=== PATIENT | female | born 1980 | race Caucasian/White ===

== ENCOUNTER 2016-11-29 14:10 | Emergency (ER) | payer BC, MEDICAID ==
[2016-11-29 16:12] VITALS: BP 127/74
== END 2016-11-29 16:12 | disposition home or self-care (01) ==
LOC: ED 14:10
DX: R21 Rash and other nonspecific skin eruption (principal); R19.7 Diarrhea, unspecified; E66.9 Obesity, unspecified
CPT/HCPCS: J0171; J1200; J2930

== ENCOUNTER 2018-04-24 16:47 | Emergency (ER) | payer BC ==
[~2018-04-24] VITALS: Ht 154.9 cm; Wt 104.3 kg
[2018-04-24 16:51] VITALS: Ht 154.9 cm; Wt 104.3 kg
[2018-04-24 19:19] LABS: BASOPHIL % 0.3 % (0-2); PLATELET COUNT 274 x10^3mcL (130-400); RED CELL DISTRIBUTION WIDTH 12.6 % (11.5-14.5)
[2018-04-24 19:32] LABS: CALCIUM 8.9 mg/dL (8.5-10.1); CARBON DIOXIDE 25.8 mmol/L (21-32); CHLORIDE SERUM 100 mmol/L (98-107); CREATININE SERUM 0.8 mg/dL (0.6-1.0); GFR1 > 60 mL/min; GLUCOSE SERUM 120 mg/dL (74-106); SODIUM SERUM 137 mmol/L (136-145)
[2018-04-24 19:36] LABS: ALKALINE PHOSPHATASE 84 U/L (46-116); ALT/SGPT 40 U/L (14-59); AST/SGOT 22 U/L (15-37); BILIRUBIN TOTAL 0.55 mg/dL (0.20-1.00); LIPASE 349 IU/L (73-393)
[2018-04-24 19:37] LABS: TOTAL PROTEIN, SERUM 8.6 g/dL (6.4-8.2)
[2018-04-24 20:10] VITALS: BP 122/74
== END 2018-04-24 20:10 | disposition home or self-care (01) ==
LOC: ED 16:47
PROVIDERS: Emergency Medicine
DX: K80.20 Calculus of gallbladder without cholecystitis without obstruction (principal); Z90.89 Acquired absence of other organs
CPT/HCPCS: 36415

== ENCOUNTER 2018-09-21 04:27 | Inpatient (IN) | payer BC ==
[~2018-09-21] VITALS: Ht 157.5 cm; Wt 106.0 kg
[2018-09-21 04:35] VITALS: Ht 157.5 cm; Wt 106.0 kg
--- NOTE | 2018-09-21 04:35 | NUR ---
PT PRESENTS TO ER TODAY WITH C/O OF GENERALIZED ABD PAIN THAT STARTED APPROX 2 HRS AGO. PT STATES THAT PAIN IS BURING AND RATES IT 10/10. SISTER AT BEDSIDE STATES THAT PT HAS VOMITED APPROX 5 TIMES IN THE PAST 2 HRS. PT DENIES ANY OTHER SYMPTOMS. PT BROUGHT TO ROOM 2B VIA WHEELCHAIR FROM THE LOBBY. PT IN DISTRESS AT THIS TIME ROLLING AROUND ON BED MOANING AND YELLING "IT HURTS". PT HAD ONE EPISODE OF VOMITING ON THE FLOOR APPROX 50MLS, NO BLOOD NOTED. PT IS A/O X4. SISTER AT BEDSIDE. MD CANNON AT BEDSIDE FOR MSE.
--- NOTE | 2018-09-21 04:45 | NUR ---
PT MEDICATED PER EMAR. PT DENIES ANY CHANCE OF , UNABLE TO OBTAIN URINE SAMPLE FROM PT AT THIS TIME.
--- NOTE | 2018-09-21 05:07 | NUR ---
PT OFF THE FLOOR FOR CT SCAN.
--- NOTE | 2018-09-21 05:18 | NUR ---
PT BACK FROM CT, US SOUND AT BEDSIDE.
[2018-09-21 05:29] LABS: CARBON DIOXIDE 21.8 mmol/L (21-32); CHLORIDE SERUM 103 mmol/L (98-107); CREATININE SERUM 0.8 mg/dL (0.6-1.0); GFR1 > 60 mL/min; GLUCOSE SERUM 197 mg/dL (74-106); POTASSIUM SERUM 3.6 mmol/L (3.5-5.1); SODIUM SERUM 137 mmol/L (136-145)
[2018-09-21 05:34] LABS: ALBUMIN 3.8 g/dL (3.4-5.0); ALKALINE PHOSPHATASE 170 U/L (46-116); ALT/SGPT 308 U/L (14-59); AST/SGOT 321 U/L (15-37); BILIRUBIN TOTAL 1.53 mg/dL (0.20-1.00)
[2018-09-21 06:07] LABS: LIPASE 32844 IU/L (73-393)
[2018-09-21 06:21] LABS: BASOPHIL % 0.3 % (0-2); PLATELET COUNT 307 x10^3mcL (130-400); RED CELL DISTRIBUTION WIDTH 13.1 % (11.5-14.5)
--- NOTE | 2018-09-21 06:46 | NUR ---
RECEIVED PT FROM ED. PT AOX4. DENIES CEVALLOS/DIZZINESS. MED SURG PT. DENIES CP/PRESSURE. LUNG SOUNDS CLEAR, ON RA. DENIES SOB/DIFFICULTY BREATHING. C/O 01/24 ABD PAIN. IV TO RAC, INTACT AND PATENT. BED IN LOWEST POSITION. CALL LIGHT WTIHIN REACH. WILL ENDORSE CARE TO ONCOMING SHIFT NURSE.
[2018-09-21 06:48] VITALS: BP 106/57
[2018-09-21 07:06] LABS: T3 TOTAL 1.42 ng/mL
[2018-09-21 07:12] LABS: MAGNESIUM 1.9 mg/dL (1.8-2.4); PHOSPHOROUS 3.7 mg/dL (2.5-4.9)
[2018-09-21 07:25] LABS: FREE T4 1.16 ng/dL (0.76-1.46); FREE THYROXINE INDEX 3.8 ug/dL (1.4-4.5); T4(THYROXINE) 11.3 ug/dL (4.7-13.3)
--- NOTE | 2018-09-21 07:48 | NUR ---
CANCELLATION REQUESTED FOR ECHOCARDIOGRAM
--- NOTE | 2018-09-21 07:50 | NUR ---
PATIENT RESTING IN BED, PATIENT C/O SHARP PAIN TO ABDOMEN 11/24. PATIENT DENIES NAUSEA, VOMITTING AT THIS TIME. PATIENT STATES LAST BM WAS YESTERDAY 09/20/18, FORMED STOOL. NS IV INFUSING TO RAC AT 150 ML/HR, IV SITE CDI AND PATENT, NO S/S OF INFILTRATION. CALL LIGHT WITHIN REACH, BED IN LOW POSITION, WILL CONTINUE TO MONITOR PATIENT.
--- NOTE | 2018-09-21 08:37 | NUR ---
PATIENT C/O OF ABDOMINAL PAIN 11/24, MEDICATED PATIENT WITH MORPHINE (PER PROTOCOL), PATIENT STATES PAIN INCREASES WITH MOVEMENT AND DEEP BREATHING. EDUCATED PATIENT IN RELAXATION TECHNIQUES AND ON PAIN MANAGEMENT. WILL CONTINUE TO MONITOR PATIENT FOR CHANGES. CALL LIGHT WITHIN REACH, BED IN LOW POSITION FOR SAFETY PRECAUTION.
[2018-09-21 08:38] LABS: CHOLESTEROL/HDL RATIO 6.6
[2018-09-21 10:07] VITALS: BP 104/51
--- NOTE | 2018-09-21 10:16 | NUR ---
PATIENT C/O CONTINOUS ABDOMNIAL PAIN, MEDICATED PATIENT WITH NORCO (PER PROTOCOL) SEE EMAR. NOTIFIED DR. ALBRIGHT OF PATIENT CONTINOUS PAIN. DR ALBRIGHT WILL REVIEW PAIN MEDICATIONS. WILL CONTINUE TO MONITOR, CALL LIGHT WITHIN REACH, BED IN LOW POSITION.
[2018-09-21 10:51] VITALS: BP 104/51
--- NOTE | 2018-09-21 14:02 | NUR ---
REPORT GIVEN TO ICU NURSE PIPPA. PATIENT WAS TAKEN DOWN VIA WHEELCHAIR. RN PIPPA AWARE ANTIBIOTICS WERE STILL INFUSING AND KLOR STILL NEEDS TO BE GIVEN.
[2018-09-21 14:05] VITALS: BP 127/75
--- NOTE | 2018-09-21 14:05 | NUR ---
RECEIVED PATIENT FROM [facility]. PATIENT A/A/OX4; CLEAR SPEECH. V/S = [id number] - 127/75 (92); O2 SAT 93% ON RA. DENIED PAIN NOW. IV TO RAC PATENT. NPO. AMBULATORY. CONTINUE MONITOR.
[2018-09-21 18:00] VITALS: BP 121/74
--- NOTE | 2018-09-21 18:00 | NUR ---
C/O ABD PAIN INCREASED TO 6/10; DILAUDID 2MG IVP GIVEN. CONTINUE MONITOR.
--- NOTE | 2018-09-21 18:30 | NUR ---
STATED ABD PAIN WENT DOWN TO 04/26.
--- NOTE | 2018-09-21 19:07 | NUR ---
RECIEVED REPORT FROM PIPPA ZURITA. WILL RESUME CARE.
[2018-09-21 19:20] VITALS: BP 120/68
--- NOTE | 2018-09-21 20:05 | NUR ---
DR. MINOR AT BEDSIDE ASSESSING PT. UPDATES PROVIDED.
--- NOTE | 2018-09-21 21:00 | NUR ---
PT C/O NAUSEA AND 7/10 PAIN. GIVEN ZOFRAN 4MG IVP AND DILAUDID 2MG IVP. WILL REASSESS FOR RELIEF.
[2018-09-22 01:55] LABS: UA SPECIFIC GRAVITY >=1.030 (1.005-1.035); microscopic required? YES; urine erythrocyte TRACE (NEGATIVE)
[2018-09-22 02:20] LABS: AMPHETAMINE QUAL UR NONE DETECTED (See below)
[2018-09-22 03:08] VITALS: BP 106/60
--- NOTE | 2018-09-22 03:08 | NUR ---
ASSESSED PT AT BEDSIDE. PT STATES NO PAIN OR NAUSEA AT THIS TIME. PT REMAINS ON 2L NC. NO SOB OR RESPIRATORY DISTRESS NOTED. BREATHING E/U. WILL CONTINUE TO MONITOR.
--- NOTE | 2018-09-22 04:25 | NUR ---
SHOP REPAIRER AT BEDSIDE FOR BLOOD DRAW.
[2018-09-22 05:27] LABS: BASOPHIL % 0 % (0-2); PLATELET COUNT 254 x10^3mcL (130-400); RED CELL DISTRIBUTION WIDTH 13.7 % (11.5-14.5)
[2018-09-22 05:34] LABS: CALCIUM 8.1 mg/dL (8.5-10.1); CARBON DIOXIDE 25.6 mmol/L (21-32); CHLORIDE SERUM 105 mmol/L (98-107); CREATININE SERUM 0.7 mg/dL (0.6-1.0); GFR1 > 60 mL/min; GLUCOSE SERUM 115 mg/dL (74-106); SODIUM SERUM 140 mmol/L (136-145)
[2018-09-22 06:06] LABS: LIPASE 5277 IU/L (73-393)
--- NOTE | 2018-09-22 06:09 | NUR ---
THROUGHOUT SHIFT PT RECEIVED DILAUDID 2MG IVP X 3 DURING SHIFT FOR ABDOMINAL PAIN AND ZOFRAN 4MG IVP FOR NAUSEA X3 DURING SHIFT. NC REMAINS AT 2L WITH NO S/SX OF SOB OR RESPIRATORY DISTRESS NOTED. NO EPISODES OF EMESIS. PT STILL NPO AT THIS TIME. VOIDED X 2. NO BM. GOWN AND LINENS CHANGED. ALL NEEDS MET AND ANTICIPATED. BED IN LOW POSITION. CALL LIGHT WITHIN REACH. WILL ENDORSE TO ONCOMING RN.
[2018-09-22 06:12] LABS: ALBUMIN 2.9 g/dL (3.4-5.0)
[2018-09-22 06:22] LABS: BILIRUBIN DIRECT 0.33 mg/dL (0.0-0.2); BILIRUBIN TOTAL 1.37 mg/dL (0.20-1.00); TOTAL PROTEIN, SERUM 6.7 g/dL (6.4-8.2)
--- NOTE | 2018-09-22 07:05 | NUR ---
GAVE REPORT TO CHETAN ZURITA. ALL QUESTIONS AND CONCERNS ADDRESSED.
--- NOTE | 2018-09-22 07:38 | NUR ---
RECEIVED PT'S REPORT FROM LEAVING NURSE. PT IS AA/O X4, NO COMPLAIN OF PAIN. PT IS NPO. PT BREATHING ON O2 2L VIA NC, EVEN, UNLABORED. PT REPORTED INCREASING ABD PAIN WHEN DEEP BREATHING. IV SITE RAC PATENT, INTACT, IVF LR INFUSING AT 150ML/HR. WILL CONTINUE TO MONITOR.
[2018-09-22 08:11] VITALS: BP 115/68
--- NOTE | 2018-09-22 09:24 | NUR ---
DR. COLIN ASSESSED PT AT BEDSIDE, ORDERED CONTINUING NPO AND IV FLUID AT 150ML/HR, AND CONFIRMED PT IS OK TO TRANSFER TO [facility] UNIT.
--- NOTE | 2018-09-22 10:10 | NUR ---
PT IS GOING TO TRANSFER TO [facility] UNIT. PT'S REPORT GIVEN TO RECEIVING NURSE HOME. CONCERN AND QUESTION ADDRESSED. PT NO COMPLAIN OF PAIN AT THIS TIME. NO DISTRESSED NOTED. WILL TRANSFER PT VIA WHEELCHAIR.
[2018-09-22 10:45] VITALS: BP 114/72
[2018-09-22 12:58] VITALS: BP 110/67
--- NOTE | 2018-09-22 13:25 | NUR ---
AT 1045 - RECEIVED PATIENT FROM ICU NURSE VIA WHEELCHAIR. SETTLED IN ROOM, ORIENTED TO SURROUNDINGS AND PLACED ON CARDIAC MONITORING TELE # 1. AWAKE, ALERT AND ORIENTED. C/O ABDOMINAL PAIN 5/10. IV INFUSING LR AT 150 ML/HR. NPO. VS WNL. AT 1113 - MEDICATED WITH DILAUDID PER EMAR. AT 1125 - SEEN BY DR SANTAMARIA. NEW ORDERS RECEIVED. PATIENT MAY COMMENCE CLEAR LIQUID DIET. AT 1230 - HAS HAD GOOD PAIN RELEIF WITH DILAUDID GIVEN EARLIER. IV INFUSION REDUCED TO 100 ML/HR PER NEW ORDERS. AT 1300 - TOLERATING CLEAR LIQUIDS PO. FAMILY AT BEDSIDE.
--- NOTE | 2018-09-22 15:20 | NUR ---
RESTING QUIETLY. NO NAUSEA, VOMITING OR C/O ABDOMINAL PAIN.
--- NOTE | 2018-09-22 18:35 | NUR ---
NO FURTHER C/O NAUSEA. NO VOMITING. PAIN APPEARS UNDER CONTROL AT THIS TIME. PATIENT TAKING SMALL AMOUNTS OF CLEAR LIQUIDS. IV INFUSING LR AT 100 ML/HR. MONITOR SHOWING SINUS TACH; RATE 106. AFEBRILE. WILL ENDORSE CARE TO NIGHT NURSE.
[2018-09-22 18:51] VITALS: BP 109/68
--- NOTE | 2018-09-22 19:10 | NUR ---
RECEIVED PT IN BED RESTING. NO ACUTE RESPIRATORY DISTRESS NOTED. C/O ABDOMINAL PAIN 12/25. WILL MEDICATE ORDERED. IV SITE PATENT AND INTACT. BE DIN LOWEST POSITION,CALL LIGHT WITHIN REACH. WILL CONTINUE TO MONITOR.
--- NOTE | 2018-09-22 20:27 | NUR ---
PT C/O ABDOMINAL PAIN 12/25. MEDICATED DILAUDID 2MG IV ORDERED. WILL CONTINUE TO MONITOR.
[2018-09-22 20:32] VITALS: BP 118/68
--- NOTE | 2018-09-23 00:14 | NUR ---
PT C/O ABDOMINAL PAIN 11/24. MEDICATED NORCO 10/325MG PO ORDERED. WILL CONTINUE TO MONITOR.
[2018-09-23 05:13] VITALS: BP 120/76
--- NOTE | 2018-09-23 05:18 | NUR ---
PT AWAKE,ALERT.NO DISTRESS NOTED.C/O ABDOMINAL PAIN 10/24. WILL MEDICATE ORDERED. BED IN LOWEST POSITION,CALL LIGHT WITHIN REACH. WILL CONTINUE TO MONITOR.
[2018-09-23 07:17] LABS: PLATELET COUNT 219 x10^3mcL (130-400); RED CELL DISTRIBUTION WIDTH 14.3 % (11.5-14.5)
--- NOTE | 2018-09-23 07:19 | NUR ---
CARE ENDORSED TO DAY NURSE MECHELLE.
[2018-09-23 07:26] LABS: CALCIUM 8.1 mg/dL (8.5-10.1); CARBON DIOXIDE 28.5 mmol/L (21-32); CHLORIDE SERUM 104 mmol/L (98-107); CREATININE SERUM 0.7 mg/dL (0.6-1.0); GFR1 > 60 mL/min; GLUCOSE SERUM 117 mg/dL (74-106); POTASSIUM SERUM 3.5 mmol/L (3.5-5.1); SODIUM SERUM 139 mmol/L (136-145)
--- NOTE | 2018-09-23 08:21 | NUR ---
AT 0730 - RECEIVED PATIENT FROM NIGHT NURSE. AWAKE, ALERT AND ORIENTED. ASSISSTED TO BATHROOM AND BACK TO BED. IV INFUSING LR AT 100 ML/HR. MONITOR SHOWING SINUS TACH; RATE 101. ABDOMEN DISTENDED AND FIRM; HYPOACTIVE BOWEL SOUNDS. NOT PASSING GAS. NO BM SINCE ADMISSION. ENCOURAGED AMBULATION. ABDOMINAL PAIN 3/10 AT THIS TIME. AT 0800 - PATIENT NOW SITTING ON SIDE OF BED FOR BREAKFAST.
[2018-09-23 08:28] LABS: LIPASE 2200 IU/L (73-393)
--- NOTE | 2018-09-23 09:03 | NUR ---
C/O ABDOMINAL PAIN 10/24. MEDICATED WITH IV DILAUDID PER EMAR. SEEN BY DR COLIN. NEW ORDERS RECEIVED.
[2018-09-23 09:11] VITALS: BP 118/52
[2018-09-23 09:20] LABS: BILIRUBIN DIRECT 0.2 mg/dL (0.0-0.2); BILIRUBIN TOTAL 0.9 mg/dL (0.20-1.00); TOTAL PROTEIN, SERUM 6.3 g/dL (6.4-8.2)
[2018-09-23 09:21] LABS: ALBUMIN 2.6 g/dL (3.4-5.0)
[2018-09-23 09:58] LABS: BAND NEUTROPHIL 5 % (0-10); BASOPHIL 0 % (0-2); METAMYELOCTE 1 % (0-2); MONOCYTE 4 % (0-7); SEGMENTED NEUTROPHILS 80 % (37-75); rbc morphology (normal/abnorm) NORMAL (NORMAL)
[2018-09-23 13:26] VITALS: BP 107/57
--- NOTE | 2018-09-23 14:29 | NUR ---
PATIENT HAS BEEN AMBULATING IN HALLWAY. ABDOMEN DISTENDED AND FIRM WITH WITH C/O MODERATE TO SEVERE ABDOMINAL PAIN. NOW GIVEN MIRALAX PER EMAR.
--- NOTE | 2018-09-23 16:35 | NUR ---
TEMP 101.7. PATIENT STIL C/O ABDOMINAL PAIN DESPITE IV DILAUDID. CALL PLACED FOR STOKER ERECTOR COOPER TO NOTIFY AND POSSIBLE ORDER FOR TORADOL AND SIMETHICONE.
[2018-09-23 17:17] VITALS: BP 128/77
--- NOTE | 2018-09-23 17:18 | NUR ---
AT 1710 - GIVEN TYLANOL PER EMAR. NOT YET ABLE TO SPEAK WITH COTTAGE MASTER.
--- NOTE | 2018-09-23 18:43 | NUR ---
AT 1755 - SPOKE WITH REAL TIME OPERATOR KENNETH PER PHONE. RECEIVED ORDER FOR SIMETHACONE (CHEWABLE) 40 MG PO Q 6 PRN FOR RELEIF OF GAS. CONTINUE TO GIVE DILAUDID FOR PAIN, PATIENT CANNOT HAVE TORADOL. AT 1815 - MEDICATED WITH DILAUDID PER EMAR. CONSENT FOR SURGERY WAS SIGNED BY PATIENT EARLIER. HAS HAD A VERY SMALL BM OF HARD STOOL. CONTIUES TO HAVE ABDOMINAL DISTENTION. NOT PASSING GAS. IV INFUSING LR AT 100 ML/HR. TAKING SMALL AMOUNTS OF CLEAR LIQUIDS PO. WILL NEED TO BE NPO AFTER MIDNIGHT, FOR SURGERY. WILL ENDORSE CARE TO NIGHT NURSE.
--- NOTE | 2018-09-23 19:02 | NUR ---
GIVEN SIMETHACONE PER EMAR
--- NOTE | 2018-09-23 19:45 | NUR ---
RECEICVED AWAKE IN BED WATCHUBG TV, SKIN WARM AND DRY TO TOUCH , RESPIRATION EVEN AND UNLABORED. PAIN LEVEL 2/10, TOLERABLE AT THIS HERMILO. WAS GIVEN DILAUDID 2MG IVP AT 1945 BY AM NURDE/ ON ROOM AIR SATURATING AT 96%, RESPIRATION EVENAND UBKBORED. PLACED CALL LIGHT WITHIN REACH, INSTRUCTED TO CALL FOR ANY ASSISTANCE NEEDED AND VERBALIZED UNDERSTANDING.
[2018-09-23 21:26] VITALS: BP 124/71
--- NOTE | 2018-09-24 01:18 | NUR ---
PT WAS GIVEN DILAUDID 2MG IVP FOR SEVERE BACK PAIN 11/24 ON 2114 AND 25, WITH GOOD RELIEF. AMBULATED TO BATRHROOM FOR PERSONAL NEEDS , HAD BM X 1 BROWNISH STOOL WELL FORMED . KEPT CLEAN AND DRY.
--- NOTE | 2018-09-24 02:04 | NUR ---
EYES CLOSED, NO FACIAL GRIMACING NOTED. RESPIRATION EVEN AND UNLABORED. NO S.S OF PAIN/DISCOMFORT. ENDORSED TO PARMINDER PAGE FOR CONTINUOTY OF CARE.
--- NOTE | 2018-09-24 02:05 | NUR ---
RECEIVED REPORT FROM PARMINDER MORALES. PT RESTING WITH EYES CLOSED. NO DISTRESS NOTED. CALL LIGHT WITHIN REACH. WILL CONTINUE TO MONITOR.
--- NOTE | 2018-09-24 03:34 | NUR ---
PT C/O SHARP PAIN TO ABD AND BACK /. MEDICATED WITH DILAUDID.
--- NOTE | 2018-09-24 03:45 | NUR ---
ZOFRAN GIVEN FOR NAUSEA.
[2018-09-24 06:03] VITALS: BP 141/90
--- NOTE | 2018-09-24 06:37 | NUR ---
DILAUDID GIVEN FOR ABD AND BACK SHARP PAIN /.
[2018-09-24 06:45] LABS: PLATELET COUNT 231 x10^3mcL (130-400); RED CELL DISTRIBUTION WIDTH 13.4 % (11.5-14.5)
--- NOTE | 2018-09-24 06:55 | NUR ---
PT RESTED AT INTERVALS THROUGHOUT SHIFT. NO SOB ON ROOM AIR. BREATHING EVEN AND UNLABORED. ON AND OFF C/O ABD AND BACK PAIN. MEDICATED PER ORDER. PT NPO SINCE MIDNIGHT FOR PROCEDURE TODAY. CONSENT SIGNED. CHECKLIST STARTED. SAFETY MEASURES MAINTAINED. CALL LIGHT WITHIN REACH. WILL ENDORSE CONTINUITY OF CARE TO DAY SHIFT RN.
--- NOTE | 2018-09-24 07:00 | NUR ---
PT AWAKE AND ALERT. PT HAD A DILAUDID IV AT 0630. PT STATED PAIN LEVEL 2/10 AT THIS TIME AND PRIOR TO MED WAS 8/10. PT NPO FOR SURG AT 110AM AND PT AWARE. PT AWARE OF USING INCENTIVE SPIROMETER POST OP AND DEEP BREATHING EXERCISES. BREATH SOUNDS CLEAR JEROME, NO RESP DISTRESS NOTED. 02 SAT 98% ON RA. TELE BOX #1 ON PATIENT AND VERIFIED WITH ADJUNCT ART HISTORY INSTRUCTOR AND SHOWS SR WITH HR 87/MIN. ABD SOFT WITH AUDIBLE BSX4 QUADS. PT STATED LAST BM WAS YESTERDAY, FORMED STOOLS. VOIDING WITHOUT PROBLEM. FREDERICK WELL. IV SITE ON RT FA, NO S/S INFILTRATION.IV OF LR INFUSING WELL AT 100CC/HR. CALL LIGHT WITHIN REACHED. BED IN LOW POSITION AND LOCKED.
[2018-09-24 07:20] LABS: CALCIUM 8.9 mg/dL (8.5-10.1); CHLORIDE SERUM 100 mmol/L (98-107); CREATININE SERUM 0.7 mg/dL (0.6-1.0); GFR1 > 60 mL/min; GLUCOSE SERUM 121 mg/dL (74-106); POTASSIUM SERUM 3.5 mmol/L (3.5-5.1); SODIUM SERUM 137 mmol/L (136-145)
[2018-09-24 09:06] VITALS: BP 121/71
--- NOTE | 2018-09-24 09:50 | NUR ---
PT COMPLAINING OF ABD PAIN 12/25. VS TAKEN 110/70, HR 83 SR, 02 SAT 98% AND RR 22. GIVEN DILAUDID 2MG IVP SLOW ORDERED. IV SITE ON RT FA, NO S/S INFILTRATION. CALL LIGHT WITHIN REACHED.
--- NOTE | 2018-09-24 10:00 | NUR ---
PT HAS KRIDER DUE BUT NOT AVAIL YET FROM PHARMACY. OR HERE AND TOOK PT TO OR [facility]IA [facility]. OR NURSE ANGELIA MADE AWARE OF KRIDER ORDER. K LEVEL 3.5 THIS AM.
--- NOTE | 2018-09-24 13:00 | NUR ---
REPORT RECEIVED VIA PHONE FROM OR NURSE JORDAN AND UNABLE TO DO LAP FABIOLA. ONLY DIAGNOSTIC LAP FABIOLA. ENDORSED TO YENY ZURITA. PT WILL BE COMING UP SOON.
--- NOTE | 2018-09-24 13:17 | NUR ---
RECEIVED PT FROM OR VIA [facility]. S/P ABORTED LAP FABIOLA, BANDAID X1 NOTED TO MID ABD. NO REPORTS OF PAIN AND ABD DISCOMFORT. VSS. BP 132/83, MAP 103, TEMP 98.6, O2 SAT 93% 2L O2, HR 107. INSTRUCTED PT ON THE USE OF CALL LIGHT FOR ASSISTANCE. WILL CONTINUE TO MONITOR
[2018-09-24 13:36] LABS: BAND NEUTROPHIL 11 % (0-10); BASOPHIL 0 % (0-2); MONOCYTE 2 % (0-7); SEGMENTED NEUTROPHILS 77 % (37-75)
[2018-09-24 13:37] LABS: rbc morphology (normal/abnorm) ABNORMAL (NORMAL)
[2018-09-24 18:02] VITALS: BP 130/76
--- NOTE | 2018-09-24 19:27 | NUR ---
RECEIVED PT FROM DAY SHIFT RN. PT AA0X4 DENIES HEADACHE OR DIZZINESS. TELE #1 ST HR 109 PER MONITOR. PT DENIES CHEST PAIN OR PRESSURE. LUNG SOUNDS CTA ON NC 2L/MIN, NO SOB NOTED. ABD INCISION COVERED WITH DRESSING, NO SIGNS OF ACTIVE BLEEDING NOTED. IV RH PATENT, INFUSING WELL WITH NO SIGNS OF INFILTRATION. GENERALIZED WEAKNESS. NO SIGNS OF ACUTE DISTRESS NOTED. CALL BUTTON WITHIN REACH. WILL CONTINUE TO MONITOR.
[2018-09-24 20:02] VITALS: BP 137/80
--- NOTE | 2018-09-24 20:30 | NUR ---
ENEMA ADMINISTERED PER ORDER.
--- NOTE | 2018-09-24 20:41 | NUR ---
PT REPORTED HAVING ABD PAIN, MEDICATED PER EMAR. WILL CONTINUE TO MONITOR.
--- NOTE | 2018-09-24 21:51 | NUR ---
PT CONTINUE TO HAVE ABD PAIN, MEDICATED PER EMAR. SAFETY PRECAUTIONS IN PLACE. WILL MONITOR.
--- NOTE | 2018-09-24 23:49 | NUR ---
PT RESTING, BREATHING EVEN AND UNLABORED WITH NO SIGNS OF DISTRESS NOTED. IV PATENT, INFUSING WELL. CALL BUTTON WITHIN REACH. WILL MONITOR.
--- NOTE | 2018-09-25 03:47 | NUR ---
PT RESTING, BREATHING EVEN AND UNLABORED WITH NO SOB NOTED, NC IN PLACE. IV PATENT, INFUSING WELL. CALL BUTTON WITHIN REACH. WILL MONITOR.
--- NOTE | 2018-09-25 05:23 | NUR ---
PT SLEPT MOST OF THE NIGHT WITH NO SIGNS OF DISTRESS. NC 2L/MIN NO SOB NOTED. IV PATENT, INFUSING WELL WITH NO SIGNS OF INFILTRATION NOTED. MEDICATED PER EMAR. NO SIGNS OF ACUTE DISTRESS NOTED. PT DENIES ANY DISCOMFORT. CALL BUTTON WITHIN REACH. WILL CONTINUE TO MONITOR AND ENDORSE CARE TO DAY SHIFT RN.
[2018-09-25 06:19] VITALS: BP 103/61
[2018-09-25 07:26] LABS: BASOPHIL % 0.1 % (0-2); PLATELET COUNT 244 x10^3mcL (130-400); RED CELL DISTRIBUTION WIDTH 13.6 % (11.5-14.5)
--- NOTE | 2018-09-25 07:27 | NUR ---
PT AWAKE, NO DISTRESS NOTED ENDORSED CARE TO DAY SHIFT RN, ALL QUESTIONS ADDRESSED.
[2018-09-25 07:36] LABS: CALCIUM 8.9 mg/dL (8.5-10.1); CARBON DIOXIDE 24.1 mmol/L (21-32); CHLORIDE SERUM 105 mmol/L (98-107); CREATININE SERUM 0.6 mg/dL (0.6-1.0); GFR1 > 60 mL/min; GLUCOSE SERUM 129 mg/dL (74-106); POTASSIUM SERUM 3.4 mmol/L (3.5-5.1); SODIUM SERUM 142 mmol/L (136-145)
[2018-09-25 08:07] VITALS: BP 109/69
[2018-09-25 11:41] VITALS: BP 108/61
--- NOTE | 2018-09-25 11:43 | NUR ---
AT 0720 - RECEIVED PATIENT FROM NIGHT NURSE. AWAKE, ALERT AND ORIENTED. NO C/O PAIN. IV INFUSING LR AT 100 ML/HR. DRESSINGS TO ABDOMEN, DRY AND INTACT. NPO FOR BARIUM ENEMA. AT 0830 - AMBULATED TO BATHROOM AND HAD MODERATE, SOFT BM. AT 0850 - C/O ABDOMINAL PAIN 6/10. MEDICATED EPR EMAR. AT 1030 - SEEN BY DR LOWRY. NEW ORDERS RECEIVED. IV INFUSION REDUCED TO 70 ML/HR. STIL AWAITING BARIUM ENEMA.
--- NOTE | 2018-09-25 14:43 | NUR ---
AT 1200 - SEEN BY DR SANTAMARIA. PLAN FOR LAP FABIOLA TOMORROW. AT 1250 - PATIENT TAKEN TO RADIOLOGY FOR BARIUM ENEMA. AT 1355 - BACK IN ROOM. REPORTS HAVING ANOTHER BM. C/O ABDOMINAL PAIN. MEDICATED WITH DILAUDID 1 MG PER EMAR. SPOKE WITH STEVEN GARZON AND RECEIVED DIET ORDER - REGULAR DIET TODAY AND NPO AFTER MIDNIGHT.
[2018-09-25 16:32] VITALS: BP 110/60
--- NOTE | 2018-09-25 17:20 | NUR ---
PATIENT SITTING IN CHAIR FOR THE PAST HOUR. C/O MODERATE, SHARP ABDOMINAL PAIN. NOW MEDICATED WITH NORCO PER EMAR.
--- NOTE | 2018-09-25 19:24 | NUR ---
AT 1830 - PATIENT C/O PERSISTANT ABDO PAIN NOT RELEIVED BY NORCO. NOW GIVEN TORADOL PER EMAR. AT 1915 - RESTING QUIETLY. FAMILY AT BEDSIDE. CARE ENDORSED TO NIGHT NURSE.
[2018-09-25 19:48] VITALS: BP 128/60
--- NOTE | 2018-09-25 20:00 | NUR ---
RECEIVED PT IN BED, RESTING QUIETLY. A/O X4, DENIES HEADACHE/DIZZINESS. RESP. EVEN AND UNLABORED. ON ROOM AIR AT THIS TIME. DENIES CHEST PAIN OR ANY DISCOMFORT AT THIS TIME. ABD. INCISION SITE WITH DRESSING, DRY AND INTACT. ABD. SOFT, SLIGHTLY DISTENDED, BS ACTIVE, NO N/V NOTED. VOIDS FREELY. IVF, LR AT 50ML/HR, INFUSING VIA RH, SITE CLEAR. ASSISTED WITH HS CARE. CALL LIGHT WITHIN REACH. WILL CONTINUE TO MONITOR.
--- NOTE | 2018-09-25 22:00 | NUR ---
DUE MEDS GIVEN ORDERED, DIANA. WELL. SURG. CONSENT OBTAINED FROM PT. WILL CONTINUE TO MONITOR.
--- NOTE | 2018-09-25 23:15 | NUR ---
ENEMA GIVEN ORDERED, DIANA. WELL. WILL CONTINUE TO MONITOR.
--- NOTE | 2018-09-26 01:45 | NUR ---
AWAKE, COMPLAINING OF ABD. INCISION SITE PAIN, 6/10, MEDICATED WITH DILAUDID IV ORDERED. WILL CONTINUE TO MONITOR.
--- NOTE | 2018-09-26 03:20 | NUR ---
RESTING QUIETLY, WITH EYES CLOSED, APPEARS ASLEEP, EASILY AROUSABLE. RESP. EVEN AND UNLABORED, NO ACUTE DISTRESS NOTED. WILL CONTINUE TO MONITOR.
[2018-09-26 04:35] VITALS: BP 128/67
--- NOTE | 2018-09-26 06:13 | NUR ---
AFEBRILE AND VITAL SIGNS STABLE. NPO SINCE [place] MAINTAINED. MEDICATED FOR ABD. INCISIONAL PAIN ORDERED WITH RELIEF. ABD. DRESSING DRY AND INTACT. IVF INTACT AND INFUSING WELL, SITE CLEAR. RESP. EVEN AND UNLABORED, ON ROOM AIR. NO ACUTE DISTRESS NOTED. HAD X2 LOOSE BM.NO N/V NOTED. VOIDING FREELY. KEPT COMFORTABLE. WILL CONTINUE TO MONITOR.
--- NOTE | 2018-09-26 06:35 | NUR ---
PT HAD TOTAL OF X3 MED. LOOSE BM.CHRISTA SKIN WASH DONE. DIANA. WELL.WILL ENDORSE TO INCOMING NURSE.
--- NOTE | 2018-09-26 07:00 | NUR ---
RECEIVED BEDSIDE REPORT FROM MOTOR VEHICLES SUPERVISOR NURSE. PATIENT RESTING COMFORTABLY IN BED. BREATHING EVEN AND UNLABORED. NO RESPIRATORY DISTRESS OR DISCOMFORT NOTED. PATIENT DENIES CHEST PAIN. C/O MILD ABD DISCOMFORT. IV PATENT AND INTACT. ALL QUESTIONS AND CONCERNS ADDRESSED. ALL NEEDS ATTENDED TO. WILL CONTINUE TO MONITOR
[2018-09-26 07:08] LABS: PLATELET COUNT 286 x10^3mcL (130-400); RED CELL DISTRIBUTION WIDTH 13.9 % (11.5-14.5)
[2018-09-26 07:31] LABS: ALKALINE PHOSPHATASE 86 U/L (46-116); ALT/SGPT 46 U/L (14-59); AST/SGOT 14 U/L (15-37); BILIRUBIN DIRECT 0.15 mg/dL (0.0-0.2); CALCIUM 8.6 mg/dL (8.5-10.1); CARBON DIOXIDE 27.8 mmol/L (21-32); CHLORIDE SERUM 103 mmol/L (98-107); CREATININE SERUM 0.6 mg/dL (0.6-1.0); GFR1 > 60 mL/min; GLUCOSE SERUM 94 mg/dL (74-106); LIPASE 260 IU/L (73-393); POTASSIUM SERUM 3.2 mmol/L (3.5-5.1); SODIUM SERUM 140 mmol/L (136-145); TOTAL PROTEIN, SERUM 6.5 g/dL (6.4-8.2)
[2018-09-26 07:39] LABS: ALBUMIN 2.4 g/dL (3.4-5.0)
[2018-09-26 09:23] VITALS: BP 133/70
--- NOTE | 2018-09-26 09:32 | NUR ---
PATIENT C/O 6/10 ABD PAIN AT THIS TIME. ADMINISTERED TORADOL PRN. PATIENT TOLERATED WELL. NO ADVERSE EFFECTS NOTED. ALL NEEDS ATTENDED TO. WILL CONTINUE TO MONITOR
--- NOTE | 2018-09-26 10:37 | NUR ---
MORNING MEDICATIONS ADMINISTERED. PATIENT TOLERATED MEDICATION WELL. NO ADVERSE EFFECTS NOTED. NO APPARENT DISTRESS OR DISCOMFORT. ALL NEEDS ATTENDED TO. WILL CONTINUE TO MONITOR
[2018-09-26 12:17] LABS: BAND NEUTROPHIL 2 % (0-10); BASOPHIL 0 % (0-2); MONOCYTE 6 % (0-7); SEGMENTED NEUTROPHILS 85 % (37-75)
[2018-09-26 12:18] LABS: PLATELET MORPHOLOGY PLATELETS NORMAL; rbc morphology (normal/abnorm) ABNORMAL (NORMAL)
--- NOTE | 2018-09-26 12:58 | NUR ---
PATIENT C/O 6/10 ABD PAIN AT THIS TIME. PATIENT MEDICATED WITH DILAUDID PRN. PATIENT TOLERATED WELL. NO ADVERSE EFFECTS NOTED. ALL NEEDS ATTENDED TO. WILL CONTINUE TO MONITOR
[2018-09-26 13:52] VITALS: BP 129/81
--- NOTE | 2018-09-26 17:47 | NUR ---
PATIENT C/O 6/10 ABD PAIN AT THIS TIME. PATIENT MEDICATED WITH TORADOL PRN AT THIS TIME. PATIENT TOLERATED WELL. NO APPARENT DISTRESS NOTED. NO ADVERSE EFFECTS NOTED. ALL NEEDS ATTENDED TO
[2018-09-26 18:29] VITALS: BP 111/70
--- NOTE | 2018-09-26 18:42 | NUR ---
PATIENT RESTING COMFORTABLY IN BED AT THIS TIME. NO APPARENT DISTRESS OR DISCOMFORT NOTED. IV PATENT AND INTACT. ALL QUESTIONS AND CONCERNS ADDRESSED. SAFETY PRECAUTIONS MAINTAINED. ALL NEEDS ATTENDED TO. WILL ENDORSE ALL CARE TO SIGN LANGUAGE INTERPRETER NURSE
--- NOTE | 2018-09-26 19:00 | NUR ---
RECEIVED PT FROM DAY SHIFT RN. PT IS CURRENTLY RESTING IN BED. SHE IS ABLE TO FOLLOW COMMANDS AND RECENT MEMORY IS INTACT. TELE #[address]. PT DENIES CHEST PAIN OR SHORTNESS OF BREATH AT THIS TIME ON 2L NASAL CANULA. PT STATES SHE GETS SHORT BREATH WHEN AMBULATING BUT IT IS TOLERABLE. INSTRUCTED PT TO CALL FOR ASSISTANCE FOR INCREASED SHORTNESS OF BREATH. ABD IN SOFT ROUND AND FIRM ON INSPECTION. DRESSING (SURGICAL) FROM ATTEMPTED FABIOLA CDI. PT DENIES ANY PAIN IN THE ABD AT THIS TIME BUT STATES THAT THERE IS SLIGHT DISCOMFORT. BOWEL SOUNDS ARE ACTIVE AND PT IS ACTIVELY PASSING GAS, BURPING AND HAS HAD A BM TODAY. RIGHT HAND IV IS CLEAN DRY AND INTACT AT THIS TIME. SAFETY MEASURES ARE IN PLACE. CALLL LIGHT IS WITHIN REACH. WILL MONITOR.
[2018-09-26 21:33] VITALS: BP 146/90
--- NOTE | 2018-09-27 01:45 | NUR ---
PT RECIEVED FROM PARMINDER RUDOLPH, PT IS AWAKE AND IN BED SITTING UP. NO COMPLAINT OF PAIN AT THIS TIME. IV INTACT. SAFETY AND COMFORT MEASURES MAINTAINED, BED IN LOWEST POSITION, CALL LIGHT WITHIN REACH, WILL CONTINUE TO MONITOR AT THIS TIME.
--- NOTE | 2018-09-27 03:07 | NUR ---
PT COMPLAINING OF ABD PAIN AND REQUESTING PAIN MED 08/24.BP 134/85, HR 98 SR, RR 20 AND 02 SAT 96% ON RA. PT AMBULATED TO BATHROOM AND STEADY ON FEET. IV SITE ON RT HAND, NO S/S INFILTRATION AND IVF INFUSING WELL. CALL LIGHT WITHIN REACHED.
--- NOTE | 2018-09-27 04:06 | NUR ---
PT IS RESTING IN BED WITH EYES CLOSED AT THIS TIME. NO ACUTE DISTRESS NOTED. IV INFUSING AND INTACT. SAFETY AND COMFORT MEASURES MAINTAINED, BED IN LOWEST POSITION, CALL LIGHT WITHIN REACH.
--- NOTE | 2018-09-27 05:03 | NUR ---
PT HAS SLEPT IN INTERMITTENT INTERVALS THROUGHOUT THE SHIFT, PT HAS BEEN ALERT AND ORIENTED X4, CALM AND COOPERATIVE WITH CARE. SAFETY AND COMFORT MEASURES MAINTAINED, BED IN LOWEST POSITION, CALL LIGHT WITHIN REACH. WILL ENDORSE CONTINUITY OF CARE TO THE ONCOMING RN.
[2018-09-27 05:19] VITALS: BP 121/76
[2018-09-27 07:14] LABS: BASOPHIL % 0.1 % (0-2); PLATELET COUNT 301 x10^3mcL (130-400); RED CELL DISTRIBUTION WIDTH 13.4 % (11.5-14.5)
[2018-09-27 07:26] LABS: CALCIUM 8.2 mg/dL (8.5-10.1); CHLORIDE SERUM 102 mmol/L (98-107); CREATININE SERUM 0.6 mg/dL (0.6-1.0); GFR1 > 60 mL/min; GLUCOSE SERUM 108 mg/dL (74-106); POTASSIUM SERUM 3.2 mmol/L (3.5-5.1); SODIUM SERUM 140 mmol/L (136-145)
--- NOTE | 2018-09-27 07:50 | NUR ---
MAPLE SYRUP MAKER CHECO AWARE PATIENT K WAS 3.2, MAPLE SYRUP MAKER CHECO WILL PLACE ORDERS TO REPLACE K. WILL CARRY OUT ORDERS.
--- NOTE | 2018-09-27 08:00 | NUR ---
PATIENT RESTING IN BED, NO ACUTE DISTRESS NOTED AT THIS TIME. PATIENT C/O ABDOMINAL DISCOMFORT, TOLERABLE. EDUCATED PATIENT ON PAIN MANAGEMENT, PROVIDED PATIENT WITH RELAXATION TECHNIQUES. PATIENT LUNG SOUNDS CTA, DENIES SOB, ON 2L NC. ABDOMINAL DRESSING NOTED TO ABDOMEN, S/P ATTEMPTED LAP FABIOLA, DRESSING CDI. LR INFUSING TO RH AT 50ML/HR, IV SITE CDI & PATENT, NO S/S OF INFILTRATION. CALL LIGHT WITHIN REACH, BED IN LOW POSITION. WILL CONTINUE TO MONITOR.
--- NOTE | 2018-09-27 08:35 | NUR ---
PATIENT WENT DOWN TO OR FOR LAP FABIOLA. CONSENT & CHECKLIST PLACED IN CHART. TELE FINANCIAL INVESTMENT MANAGER AWARE. WILL FOLLOW UP WITH OR NURSE.
[2018-09-27 08:40] VITALS: BP 104/53
--- NOTE | 2018-09-27 11:07 | NUR ---
PATIENT ARRIVED FROM OR AT THIS TIME. ABDOMINAL DRESSING X4 CDI. VITAL SIGN STABLE: BP 116/68 MAP 81 HR 69 TEMP 97.8 RESP 21. PATIENT DENIES PAIN. CALL LIGHT WITHIN REACH, BED IN LOW POSITION, WILL CONTINUE TO MONITOR
[2018-09-27 12:15] VITALS: BP 92/45
--- NOTE | 2018-09-27 13:26 | NUR ---
PATIENT SLEEPING IN BED, DENIES PAIN AT THIS TIME. NO ACUTE DISTRESS NOTED. CALL LIGHT WITHIN REACH, BED IN LOW POSITION. WILL CONTINUE TO MONITOR FOR CHANGES.
--- NOTE | 2018-09-27 14:06 | NUR ---
Intervention 1. Clear liquid diet and transition textures per CHILD LIFE THERAPIST recommendations 2. Provided Cholecystitis nutrition education
--- NOTE | 2018-09-27 14:06 | NUR ---
Initial Nutrition Assessment: Mena Layne [place] Rm 235B Dx: Acute Cholecystitis PMHx: None PSHx: Appendectomy, x2 Labs: K 3.2L, Glucos. 108H, BUN 6.0L, Ca 8.2L, WBC 13.0H, Hgb. 10.6L, Hct. 31L (09/21) A1C 6.4H Meds: Colace, Dulcolax, KCl 10%, Lactated Ringers, Lactinex, Miralax, Mylicon/Mylanta, Senokot, Zofran Diet: Clear Liquid Diet PO intake since admission: (09/21) NPO, (09/25) NPO, (09/26) CL-50-100%, Ht: 157.5cm, 62in Wt: 106kg, 233# BMI: 42.7kg/m2 (Obese) Bed scale: 243# IBW: 110#, 50kg %IBW: 211% UBW: 190-210# Age: 37/F Food Allergies: Shrimp Skin: ABD incision dressing CDI from attempted Chol on 09/24/18. Vickey: 19 Edema: None GI: Last BM: 09/27/18 Per H&P: Pt was seen and evalyuated under supervision of attending Dr. Hernandes. Pt is 37yo F with no PMH came in with 1 day of 10/10 sharp radiating to the back RUQ pain, no alleviating or aggravating factors. Positive nausea, several episodes of nonbloody, nonbilious vomiting. No fever or diarrhea but positive chills. Pt admits to fatty, spicy food prevalent in her diet. Of note, pt went to [facility] ago with same symptoms, was diagnosed with symptomatic cholelithiasis and was discharged back home on PO Vicodin which relieved her pain initially. Today pain returned and Vicodin didn't relieve any pain, hence pt decided to go to ER of [facility] [place]. Pt Visit: Pt had just completed surgery and was groggy but willing to talk. Pt is currently NPO due to surgery.She said she had no interest in food because it casued her pain. She said she did ok with drinking water, juice and tea. She said she was given a lot of medications to help with her N/V/C/D. Pt said at home she tries to stay away from bread and tortillas and sweets because of the sugar. Problem with: N: No V: No D: No C: No Problems with: Chewing: None Swallowing: None Current appetite: Poor Recent wt change: None %wt change: None Vitamin/Supplement use: None Special diet at home: Regular Physical activity: None Nutrition education given: [facility] Gallbladder Nutrition Therapy packet and went over eating foods that are not high in fat and eating small frequent meals. Food-drug interactions: Dulcolax, Miralax and Senokot- high fiber diet with 1500-200ml of fluids to prevent constipation. Education given: Yes Estimated Nutritional Needs Based on adjusted body weight 63(kg) Energy:1165-5728 kcal/day (25-30kcal/kg) (For inflammation) Protein:63-75g/day (1.0-1.2) (For lean body mass) Fluid: 1575-1900ml/day (1 ml/kcal) or per Nutrition Diagnosis: 1. Inadequate oral intake r/t acute cholecystitis and s/p lab mariah aeb NPO diet ordered and pt reporting pain and poor appetite. Intervention 1. Clear liquid diet and transition textures per DISCHARGE DOOR OPERATOR recommendations 2. Provided Cholecystitis nutrition education Monitor/Evaluate Goal: PO intake at least 75% of estimated needs Monitor: PO intake, Labs, GI function F/U 09/30-10/02
[2018-09-27 16:57] VITALS: BP 98/51
--- NOTE | 2018-09-27 19:15 | NUR ---
PATIENT RESTING IN BED, DENIES PAIN AT THIS TIME. TELE MONITOR IN PLACE. NO ACUTE CHANGES NOTED THROUGH OUT SHIFT, PATIENT IS STABLE. ABDOMINAL DRESSING X4 CDI, NO DRAINAGE NOTED. GILMER DRAIN OUTPUT 110ML. NS IV INFUSING TO RH AT 50ML/HR, IV SITE CDI & PATENT, NO S/S OF INFILTRATION. CALL LIGHT WITHIN REACH, BED IN LOW POSITION. WILL ENDORSE REPORT TO NIGHT NURSE.
--- NOTE | 2018-09-27 19:30 | NUR ---
PT IS A/O x4. ON TELE #31, NSR. DENIES ANY CHEST PAIN OR PRESSURE. PULSES ARE PRESENT. TRACE BLE EDEMA NOTED. LUNGS CLEAR IN ALL FEILDS. ON 2L NC, DENIES ANY SOB. EQUAL CHEST RISE AND FALL. NO SIGN OF RESP DISTRESS. BOWEL SOUNDS HYPOACTIVE x4. 4 ABD INCISIONS D/T LAP PROCEDURE. 2 WITH BANDAGE, ONE WITH 4x4, CLEAN AND INACT. LAST DRESSING IS A GILMER DRAIN ON R SIDE COVERED WITH SPONGE TAPE, SEROSANGUINEOS FLUIDS NOTED IN GILMER DRAIN. PT STATED PAIN ON INCISION SITES ARE TOLERABLE AT THIS TIME, 06/24. IV ON RH, INTACT AND PATENT. NO SIGN OF IRRITATION OR INFILTRATION NOTED. BED IS AT LOWEST SETTING. ROBERTO LIGHT WITHIN REACH. WILL CONTINUE TO MONITOR.
[2018-09-27 20:54] VITALS: BP 136/71
--- NOTE | 2018-09-28 01:31 | NUR ---
ASSISTED PT TO THE BEDSIDE CAMMODE. PT TOLERATED WELL, WITH A SLOW GAIT. GILMER DRAIN WAS EMPITIED. MADE PT COMFORTABLE IN BED. CALL LIGHT WITHIN REACH. WILL CONTINUE TO MONITOR.
[2018-09-28 05:50] VITALS: BP 111/63
--- NOTE | 2018-09-28 06:42 | NUR ---
PT IS RESTING IN BED WITH BOTH EYES CLOSED. BREATHING EVEN AND UNALBORED. NO SIGN OF DISTRESS NOTED. GILMER DRESSING WAS CHANGED D/T BEING SOLID WITH URINE. NEW DRESSING IS CLEAN AND INTACT. SEROUSANGUINEOUS DRAINAGE NOTED. IV INTACT AND PATENT. PT HAS BURPED BUT HAS NOT PASS FLATUS. BED IS AT LOWEST SETTING. CALL LIGHT WITHIN REACH. WILL ENDORSE TO AM NURSE.
--- NOTE | 2018-09-28 07:30 | NUR ---
RECEIVED PATIENT IN BED, ALERT AND ORIENTED. IVF INFUSING WELL TO RT HAND, SITE PATENT. TELE 1 NSR. OOB AND AMBULATED IN THE HALLWAYS. REMINDED TO USE I.S. 10X/HR W/A. TRACE EDEMA NOTED BLE. GILMER DRAIN NOTED WITH SEROUS DRAINAGE IN BULB. BAND AIDS AND DRESSING NOTED OVER SURGICAL SITE ON ABD. PER PATIENT SHE IS BURPING BUT NOT PASSING IN GAS. WILL CONTINUE TO MONITOR.
[2018-09-28 08:21] VITALS: BP 129/69
[2018-09-28 08:31] LABS: BASOPHIL % 0.1 % (0-2); PLATELET COUNT 353 x10^3mcL (130-400); RED CELL DISTRIBUTION WIDTH 13.6 % (11.5-14.5)
[2018-09-28 08:45] LABS: CALCIUM 8.6 mg/dL (8.5-10.1); CARBON DIOXIDE 25.3 mmol/L (21-32); CHLORIDE SERUM 106 mmol/L (98-107); CREATININE SERUM 0.8 mg/dL (0.6-1.0); GFR1 > 60 mL/min; GLUCOSE SERUM 126 mg/dL (74-106); SODIUM SERUM 143 mmol/L (136-145)
--- NOTE | 2018-09-28 11:45 | NUR ---
PT C/O PAIN 09/24 TO SX AREA MEDICATED WITH TORADOL IVP PER EMAR. PT DENIES ANY N/V. ASSISTED TO BR. RECEIVED T.O. FROM DR. SANTAMARIA TO ADVANCE DIET TO FULL LIQUID. MADE AWARE PT REPORTED 2 BM AND GOOD GAS MOVEMENTS.
--- NOTE | 2018-09-28 11:45 | NUR ---
PATIENT HAS BEEN OOB TO THE BATHROOM. PATIENT HAS HAD 2 LARGE BM'S THIS AM. C/O ABD PAIN 6/10 ON THE PAIN SCALE. MEDICATED WITH TORADOL IV BY SIMI ZURITA AND GIVEN MYLICON PO ORDERED FOR C/O GAS. WILL MONITOR FOR EFFECT.
[2018-09-28 12:02] VITALS: BP 120/64
--- NOTE | 2018-09-28 12:55 | NUR ---
GILMER DRAIN SITE DRESSING CHANGED AT THIS TIME. DRESSING SATURATED WITH SEROUS DRAINAGE. GILMER DRAIN EMPTIED AGAIN AT THIS TIME 30ML SEROUS LIQUID. PATIENT IS SITTING UP IN BED EATING LUNCH TRAY.
[2018-09-28 16:10] VITALS: BP 107/55
--- NOTE | 2018-09-28 17:38 | NUR ---
PATIENT HAS BEEN OOB AMBLATING IN THE HALLWAYS. IVF INFUSING WELL ORDERED. TOLERATING DIET WELL. GILMER DRAIN NOTED WITH SEROUS DRAINAGE IN BULB. SLIGHT SOB NOTED UPON EXERTION. WILL CONTINUE TO MONITOR.
--- NOTE | 2018-09-28 18:50 | NUR ---
I HAVE REVIEWED THE DATA COLLECTION BY CORE INSPECTOR (NAME): ENTERED ON (DATE/TIME): I CONCUR WITH THE DATA AND ANY EXCEPTIONS OR COMMENTS ARE LISTED BELOW: PATIENT'S PLAN OF CARE WAS DISCUSSED AND REVIEWED WITH CORE INSPECTOR:ANGY REYES
--- NOTE | 2018-09-28 20:00 | NUR ---
RECEIVED PT IN BED, RESTING QUIETLY. A/O X4. DENIES HEADACHE/DIZZINESS. RESP. EVEN AND UNLABORED. ON ROOM AIR, LUNG SOUNDS CLEAR BILAT. NO ACUTE DISTRESS NOTED. AFEBRILE AND VITAL SIGNS STABLE. IVF, LR AT 25ML/HR, INTACT AND INFUSING VIA RT HAND, SITE CLEAR. ABD. INCISION SITES WITH BANDAIDS X4, DRY AND INTACT. GILMER DRAIN INTACT AND DRAINING SERO-SANG. DRAINAGE. ABD. SOFT,BS ACTIVE, NO N/V NOTED. DIANA. PO WELL. ASSISTED WITH HS CARE. CALL LIGHT WITHIN REACH. WILL CONTINUE TO MONITOR.
--- NOTE | 2018-09-28 21:30 | NUR ---
COMPLAINED OF ABD.SURG. SITE PAIN, 5/10, MEDICATED WITH TORADOL IV ORDERED. WILL CONTINUE TO MONITOR.
[2018-09-28 21:52] VITALS: BP 122/63
--- NOTE | 2018-09-28 22:30 | NUR ---
RESTING QUIETLY, PT STATES PAIN RELIEF. WILL CONTINUE TO MONITOR.
--- NOTE | 2018-09-29 00:39 | NUR ---
RESTING QUIETLY WITH EYES CLOSED, APPEARS ASLEEP, EASILY AROUSABLE. RESP. EVEN AND UNLABORED. NO ACUTE DISTRESS NOTED. CALL LIGHT WITHIN REACH. WILL CONTINUE TO MONITOR.
[2018-09-29 05:43] VITALS: BP 119/69
--- NOTE | 2018-09-29 06:24 | NUR ---
AFEBRILE AND VITAL SIGNS STABLE. RESP. EVEN AND UNLABORED. ENCOURAGED TO USE THE INCENTIVE AIDA. W/A. DIANA. WELL. MEDICATED FOR ABD. SURG. SITE PAIN WITH RELIEF. DRESSING AT GILMER SITE, SATURATED WITH SERO-SANG DRAINAGE, DRESSING CHANGED. X4 BANDAIDS INTACT AND DRY.75ML OF SERO-SANG. DRAINAGE OBTAINED FROM GILMER.DUE MEDS GIVEN ORDERED, DIANA. WELL. IVF INTACT AND INFUSING WELL, SITE CLEAR.VOIDS FREELY. CALL LIGHT WITHIN REACH. WILL CONTINUE TO MONITOR.
--- NOTE | 2018-09-29 07:30 | NUR ---
IV TO THE RIGHT HAND. NO REDNESS OR SWELLING NOTED.
--- NOTE | 2018-09-29 07:30 | NUR ---
PT ENODORSE TO ME THIS MORNING. LAYING IN BED RESTING. AA/OX4 BREATHING EVEN AND UNLABORED ON RA/ CTA, I.S. AT BEDSIDE. TELE 1 SR NOTED, HR 70. DENIES ANY CP OR PRESSURE. TRACE OF BLE EDEMA NOTED. BOWEL SOUNDS ACTIVE IN ALL FOUR QUADS, LAST BM 09/28. INCISION SITES X4 TO ABD DRY AND INTACT. GILMER DRAIN NOTED/ INTACT AND DRAINING SERO-SANG NOTED. GEN WEAKNESS AT TIME. AMB. KNOWS TO CALL FOR ASSIST. DENIES ANY ABD PAIN OR DISCOMFORT AT THIS TIME/ MEDICATD PER EMAR. IV INTACT AND PATENT, LR INFUSING AT 25ML/HR, NO REDNESS OR SWELLING NOTED TO SITE. CALL LIGHT IN REACH. BED IN LOW POSITION. WILL CONTINUE TO MONITOR.
[2018-09-29 08:00] VITALS: BP 132/75
--- NOTE | 2018-09-29 11:30 | NUR ---
PT TOLERATED 50% OF BREAKFAST, NO N/V NOTED. WILL CONTINUE TO MONITOR.
[2018-09-29 12:21] VITALS: BP 124/88
--- NOTE | 2018-09-29 14:50 | NUR ---
PT TOLERATED 70% OF HER LUNCH, NO N/V NOTED. WILL CONTINUE TO MONITOR.
--- NOTE | 2018-09-29 16:35 | NUR ---
PT C/O ABD PAIN 08/24, MEDICATED PER EMAR. CHANGED X3 BANDAIDS DUE TO DRIED BLOOD NOTED. WILL CONTINUE TO MONITOR.
[2018-09-29 16:51] VITALS: BP 111/63
--- NOTE | 2018-09-29 18:42 | NUR ---
NO ACUTE CHANGES AT THIS TIME. NO ACUTE RESP DISTRESS OR SOB NOTED. DENIES ANY CP OR PRESSURE OR ABD PAIN AT THIS TIME/ MEDICATED PER EMAR. IV TO THE R HAND INTACT AND PATENT/ HEPLOCKED/ NO REDNESS OR SWELLING NOTED. WILL ENDORSE TO INCOMING RN.
--- NOTE | 2018-09-29 19:33 | NUR ---
AWAKE AND ALERT, SITTING ON SIDE OF BED. BREATHING EVEN AND UNLABORED ON ROOM AIR. STATED PASSED STOOL TWICE TODAY. BOWEL SOUNDS ACTIVE. DRESSING TO ABD CDI. NOTED SEROSANGUINEOUS FLUID TO GILMER DRAIN. DENIES HAVING PAIN AT THIS TIME. SALINE LOCK TO RIGHT HAND.
[2018-09-29 20:40] VITALS: BP 121/73
--- NOTE | 2018-09-29 21:12 | NUR ---
SLIGHT BLANCHABLE REDNESS NOTED TO BUTTOCKS. PT ALSO PASSED SOFT STOOL. HYGIENE NEEDS ATTENDED TO. PLACED ON AIR MATTRESS. HYDRAGUARD APPLIED TO BUTTOCKS AND SACRO/COCCYGEAL AREAS. FEET OFFLOADED FROM BED WTIH PILLOWS. HOB ELEVATED 30 DEG. RELEASED FROM SOFT RESTRAINTS FOR ROM OFF ARMS. PT STILL ATTEMPTS TO PULL OUT NG TUBE AND IV. DANGER TO SELF. PLACED BACK ON RESTRAINTS. NO REDNESS OR OPEN SKIN BREAKDOWN NOTED TO AREAS OF RESTRAINT PLACEMENT. SCAB TO LEFT GUTIERREZ NOTED. AREA OF ECCHYMOSES TO LEFT AC. ASSISTED BY NURSE SAINI.
--- NOTE | 2018-09-29 21:15 | NUR ---
DIAPER REMOVED, PLACED ON INCONTINENCE PADS.
--- NOTE | 2018-09-29 22:34 | NUR ---
PT STATED UNABLE TO SLEEP. CALLED DR. ARAYA. HE GAVE TELEPHONE ORDER, READ BACK, FOR AMBIEN 5MG TABLET PO ONCE.
--- NOTE | 2018-09-29 22:56 | NUR ---
AMBIEN 5MG TABLET ADMINISTERE PO. PT AWAKE AND ALERT. CALL LIGHT WITHIN EASY REACH
--- NOTE | 2018-09-30 01:06 | NUR ---
STATED HAVING 5/10 PAIN TO SURGICAL SITE TO ABD. ALSO STATED FELT LIKE "STINGING" AND WET TO GILMER DRAIN SITE. TORADOL 15MG IN 5 MLS NS ADMINISTERED SLOW IVP FOR PAIN. REMOVED DRESSING TO GILMER DRAIN SITE. NOTED GAUZE MODERATELY SOAKED WITH SEROUS LIKE FLUID, NOTED SLIGHT REDNESS TO GILMER DRAIN INSERTION SITE. AREA CLEANSED WITH NS, PATTED DRY WITH STERILE GAUZE. SURROUNDING SKIN WIPED WITH SKIN PROTECTANT. NEW SPONGE DRAINS APPLIED TO GILMER DRAIN SITE, COVERED WITH ABD BINDER, SECURED WITH TAPE. PT STATED "IT FEELS SO MUCH BETTER".
[2018-09-30 05:15] VITALS: BP 107/53
--- NOTE | 2018-09-30 06:27 | NUR ---
EYES CLOSED, EASILY AWAKENED. HOB KEPT ELEVATED 35 DEG. BREATHING EVEN AND UNLABORED. DRESSING INTACT TO ABD. DRAINED 40ML OF LIGHT SEROSANGUINEOUS FLUID FROM GILMER BULB. SALINE LOCK FREE FROM ERYTHEMA OR SWELLING
[2018-09-30 06:43] LABS: CARBON DIOXIDE 27.3 mmol/L (21-32); CHLORIDE SERUM 105 mmol/L (98-107); CREATININE SERUM 0.7 mg/dL (0.6-1.0); GFR1 > 60 mL/min; GLUCOSE SERUM 112 mg/dL (74-106); POTASSIUM SERUM 4.6 mmol/L (3.5-5.1); SODIUM SERUM 142 mmol/L (136-145)
[2018-09-30 07:03] LABS: BASOPHIL % 0.3 % (0-2); PLATELET COUNT 399 x10^3mcL (130-400); RED CELL DISTRIBUTION WIDTH 13.8 % (11.5-14.5)
--- NOTE | 2018-09-30 07:08 | NUR ---
EYES CLOSED, BREATHING EVEN AND UNLABORED ON ROOM AIR. CALL LIGHT WITHIN EASY REACH. ENDORSED TO NURSE TYRESE
[2018-09-30 07:20] VITALS: BP 119/75
--- NOTE | 2018-09-30 07:28 | NUR ---
PT ENDORSE TO ME THIS MORNING. LAYING IN BED RESTING. AA/O X4 BREATHING EVEN AND UNLABORED ON RA. NO ACUTE RESP DISTRESS OR SOB NOTED. TELE 1 SR, HR 75 NOTED. DENIES ANY CP OR PRESSURE/ OR ABD PAIN AT THIS TIME, MEDICATED PER EMAR. BOWEL SOUNDS ACTIVE IN ALL FOUR QUADS, X4 ABD BANDAIDS INTACT. GILMER DRAIN DRAINING SERO-SANG NOTED, PER AEROBICS INSTRUCTOR 40ML OUTPUT. IV TO THE RIGHT HAND, INTACT AND PATENT/ HEPLOCKED. WILL CONTINUE TO MONITOR/ CALL LIGHT IN REACH.
--- NOTE | 2018-09-30 08:35 | NUR ---
PT UP FROM BED AMB THE HALLS, TOLERATING WELL. WILL CONTINUE TO MONITOR..
[2018-09-30 13:00] VITALS: BP 139/82
--- NOTE | 2018-09-30 15:57 | NUR ---
PT C/O ABD PAIN 5/10M MEDICATED PER EMAR. ONCE PT HAS NO ABD PAIN SHE WILL CALL NURSING STATION AND GILMER DRAIN WILL BE REMOVED.
--- NOTE | 2018-09-30 16:59 | NUR ---
REMOVED GILMER DRAIN TO THE ABD, TOTAL OUTPUT 25ML SERO-SANGUINOUS. TOLERATED WELL.
[2018-09-30] MEDS ORDERED: IBUPROFEN400 MG PO (17:14)
[2018-09-30] MEDS ORDERED: QUALITY CHOICE200 M2 PO (17:24)
--- NOTE | 2018-09-30 17:57 | NUR ---
EXPLAINED DISCHARGE INSTRUCTIONS, NEW AND CONTINUED MEDS, AND FOLLOW UP APPT PATIENT MUST MAKE WITH DR. SANTAMARIA ON OR BEFORE 10/05/18 AND PRIMARY DOCTOR, PT AGREED AND SIGNED ALL DOCUMENTS. REMOVED IV TO THE RIGHT HAND, CATHETER TIP INTACT, NO REDNESS OR SWELLING NOTED. REMOVED TELE 1 AND RETURNED. PENDING DISCHARGE.
--- NOTE | 2018-09-30 18:02 | NUR ---
DEVI ZAPATA WHEELED PT DOWN TO FRONT OF HOSPTIAL, HER MOTHER WILL BE DRIVING HER HOME. BREATHING EVEN AND UNLABORED ON RA, IS CLEAR ON ALL DISCHARGE INSTRUCTIONS AND APPTS SHE NEEDS TO MAKE PRIMARY AND DR. SANTAMARIA. DENIES ANY ABD PAIN OR PRESSURE. DISCHARGE.
== END 2018-09-30 18:04 | disposition home or self-care (01) | DRG 853 ==
LOC: ED 04:27 → DU 06:04 → MU 06:04 → IC 06:04 → MU 06:33 → IC 14:05 → DU 09-22 10:39
PROVIDERS: Emergency Medicine; Internal Medicine; Surgery; ADMIT Family Medicine
PROC: 0WJH4ZZ Inspection of Retroperitoneum, Percutaneous Endoscopic Approach (ICD-10-PCS; principal; 2018-09-24 11:00)
PROC: 0FT44ZZ Resection of Gallbladder, Percutaneous Endoscopic Approach (ICD-10-PCS; 2018-09-27)
DX: A41.9 Sepsis, unspecified organism (principal); K85.10 Biliary acute pancreatitis without necrosis or infection; Z68.41 Body mass index [BMI] 40.0-44.9, adult; N30.00 Acute cystitis without hematuria; K56.7 Ileus, unspecified; K80.00 Calculus of gallbladder with acute cholecystitis without obstruction; R74.0 Nonspecific elevation of levels of transaminase and lactic acid dehydrogenase [LDH]; K63.89 Other specified diseases of intestine; E11.9 Type 2 diabetes mellitus without complications; E66.01 Morbid (severe) obesity due to excess calories; Z79.84 Long term (current) use of oral hypoglycemic drugs; Z90.49 Acquired absence of other specified parts of digestive tract; Z88.8 Allergy status to other drugs, medicaments and biological substances; Z79.899 Other long term (current) drug therapy
CPT/HCPCS: 82962; 84439; 94150; G0378; J0330; J0696; J1170; J1885; J2250; J2270; J2405; J2704; J2710; J3010; J3480; J3490; J7030; J7042; J7120; J7121; J8597; Q0092; Q9967